=== PATIENT | female | born 1975 | race Caucasian/White ===

== ENCOUNTER 2019-12-01 11:21 | Emergency (ER) | payer SELFPAY ==
[2019-12-01 11:50] VITALS: BP 124/67
--- NOTE | 2019-12-01 11:51 | UC ---
Bite Injury/Animal HPI - HPI Summary HPI Summary: 44 yo female presents with cat bite. She is a resident at [facility] and this morning was handling a cat that bit her right 4th digit. Pt immediately cleansed the area with cholrhexadine and soap and water. Bandaged the area and came to . She states she is UTD with her tetanus and recent rabies labwork revealed immunity as she has had the series in the past. - History of Current Complaint Chief Complaint: UCBiteInjury Stated Complaint: CAT BITE Time Seen by Provider: 12/01/19 11:51 Hx Obtained From: Patient Hx Last Menstrual Period: 12/01/19 Severity Currently: Mild Severity Initially: Mild Pain Intensity: 1 Pain Scale Used: 0-10 Numeric - Allergies/Home Medications Allergies/Adverse Reactions: Allergies Allergy/AdvReac Type Severity Reaction Status Date / Time amoxicillin AdvReac GI Upset Verified 12/01/19 11:44 PMH/Surg Hx/FS Hx/Imm Hx - Additional Past Medical History Additional PMH: None - Surgical History Surgical History: Yes Surgery Procedure, Year, and Place: R ovary. 2008 - Family History Known Family History: Positive: None - Social History Occupation: Employed Full-time Lives: With Family Alcohol Use: None Substance Use Type: None Smoking Status (MU): Never Smoked Tobacco Review of Systems All Other Systems Reviewed And Are Negative: No Constitutional: Positive: Negative Skin: Positive: Other - Cat bite right 4th finger Respiratory: Positive: Negative Cardiovascular: Positive: Negative Neurovascular: Positive: Negative Neurological: Positive: Negative Psychological: Positive: Negative Physical Exam - Summary Physical Exam Summary: GENERAL: NAD. WDWN. No pain distress. SKIN: RIGHT 4th digit: finger pad with 6mm linear laceration partial thickness with inferior portin appearing to be a 2-3mm depth puncture. Well approximated at rest. No drainage, erythema, or edema. Does not involve joint, tendon, or bone. CHEST: No accessory muscle use. Breathing comfortably and in no distress. CV: Pulses intact. Cap refill <2seconds NEURO: Alert. PSYCH: Age appropriate behavior. Triage Information Reviewed: Yes Vital Signs: Initial Vital Signs Temp 99.1 F 12/01/19 11:45 Pulse 61 12/01/19 11:45 Resp 16 12/01/19 11:45 BP 124/67 12/01/19 11:45 Pulse Ox 100 12/01/19 11:45 Vital Signs Reviewed: Yes Bite Injury Course/Dx - Course Course Of Treatment: Pt states that augmentin and doxycycline give her GI upset. We discussed watchful waiting, but she prefers to try the augmentin at this time. Will also rx for Zofran. F/u with health department as directed - Differential Dx/Diagnosis Provider Diagnosis: Cat bite Discharge ED - Sign-Out/Discharge Documenting (check all that apply): Patient Departure All imaging exams completed and their final reports reviewed: No Studies - Discharge Plan Condition: Stable Disposition: HOME Prescriptions: Amoxicillin/Clavulanate TAB* [Augmentin TAB 875*] 875 mg PO BID #14 tab Ondansetron ODT TAB* [Zofran 4 MG Odt TAB*] 4 mg PO Q6H PRN #12 tab.odt PRN Reason: Nausea Patient Education Materials: Animal Bite (ED) Referrals: Zaira Ahuja MD [Primary Care Provider] - Additional Instructions: If you develop a fever, shortness of breath, chest pain, new or worsening symptoms - please call your PCP or go to the ED immediately. Change the dressing daily until well healed - Billing Disposition and Condition Condition: STABLE Disposition: Home
== END 2019-12-01 12:15 | disposition home or self-care (01) ==
LOC: UCEAST 11:21
DX: S61.254A Open bite of right ring finger without damage to nail, initial encounter (principal); Z88.0 Allergy status to penicillin; W55.01XA Bitten by cat, initial encounter; Y92.9 Unspecified place or not applicable
CPT/HCPCS: 99202; G0463